=== PATIENT | female | born 1960 | race Caucasian/White ===

== ENCOUNTER 2020-04-22 12:44 | Outpatient (CLI) | payer MEDICARE, MEDICAID, SELFPAY ==
--- NOTE | ~2020-04-22 | CT_ITS ---
EXAMINATION: CT lung screening DATE: 04/22/2020 13:00 INDICATION: Personal history of nicotine dependence, current smoker with 30 pack year history TECHNIQUE: Computed tomography (CT) of the chest was performed without intravenous contrast. The dose -length product (DLP) was 60.54 mGy-cm. Automated exposure control and iterative reconstruction techn ique were employed. COMPARISON: None FINDINGS: There is moderate emphysema. No suspicious pulmonary nodules are identified. The lungs are free of acute opacities. There is no pleural effusion or pneumothorax. No pathologically enlarged tho racic lymph nodes are identified. The heart size is normal. Calcified coronary artery atherosclerosis is noted. IMPRESSION: 1. Lung-RADS category 1: Negative. Continue annual screening with noncontrast low-dose chest CT in 12 months. Reviewed, dictated and finalized at location A. IMPRESSION: 1. Lung-RADS category 1: Negative. Continue annual screening with noncontrast l ow-dose chest CT in 12 months.
== END 2020-04-22 12:45 | disposition home or self-care (01) ==
PROVIDERS: PCP Internal Medicine; Visit Provider Internal Medicine
DX: Z12.2 Encounter for screening for malignant neoplasm of respiratory organs (principal); Z87.891 Personal history of nicotine dependence
CPT/HCPCS: G0297

== ENCOUNTER 2020-05-10 10:34 | Outpatient (CLI) | payer MEDICARE, MEDICAID, SELFPAY ==
--- NOTE | ~2020-05-10 | XR_ITS ---
EXAMINATION: XR ankle RT min 3V INDICATION: Right ankle pain, initial encounter TECHNIQUE: Four views of the right ankle are obtained. COMPARISON: None available FINDINGS: There is an acute avulsion fracture involving the tip of the lateral malleolus. Ankle soft tissue swelling is present. Bone alignment is normal. No additional fracture is identified. IMPRESSION: 1. Small avulsion fracture of the lateral malleolus. Reviewed, dictated and finalized at location A.
--- NOTE | ~2020-05-10 | XR_ITS ---
EXAMINATION: XR foot RT min 3V DATE: 05/10/2020 10:55 INDICATION: Right foot pain, initial encounter TECHNIQUE: Dorsoplantar, lateral, and 2 oblique views of the right foot were obtained. COMPARISON: None. FINDINGS: There is a questionable avulsion injury involving the dorsal aspect of the navicular. The t iny avulsion of the lateral malleolus as described in the ankle radiographs. Bone alignment in the fo ot is normal. The foot soft tissues are unremarkable. IMPRESSION: 1. Possible avulsion injury involving the dorsal aspect of the navicular. Reviewed, dictated and finalized at location A.
== END 2020-05-10 10:35 | disposition home or self-care (01) ==
LOC: CHSIMG 10:36
PROVIDERS: PCP Internal Medicine; Visit Provider Internal Medicine
DX: S99.911A Unspecified injury of right ankle, initial encounter (principal)
CPT/HCPCS: 73610; 73630

== ENCOUNTER 2020-06-07 10:01 | Outpatient (CLI) | payer MEDICARE, MEDICAID, SELFPAY ==
--- NOTE | ~2020-06-07 | XR_ITS ---
XR foot RT min 3V, XR ankle RT min 3V 06/07/2020 10:25 (accession [id number]), 06/07/2020 10:24 (accession [id number]) INDICATION: Follow-up fracture PROCEDURE: 4 views right foot and 4 views right ankle COMPARISON: 05/10/2020 FINDINGS: Fracture, dislocation or subluxation is not identified. Lisfranc joint intact. Mild osteoar thritis first MTP joint. There is a healing fracture fibular tip. Ankle mortise intact. No significan t soft tissue swelling. No acute fracture or traumatic malalignment. No evidence for fracture involvi ng the navicular. The soft tissues appear within normal limits. No foreign bodies are identified. IMPRESSION: 1: Healing fracture right fibular tip. Reviewed, dictated and finalized at location B. IMPRESSION: 1: Healing fracture right fibular tip.
== END 2020-06-07 10:02 | disposition home or self-care (01) ==
LOC: CHSIMG 10:02
PROVIDERS: PCP Internal Medicine; Visit Provider Internal Medicine
DX: S82.891D Other fracture of right lower leg, subsequent encounter for closed fracture with routine healing (principal)
CPT/HCPCS: 73610; 73630

== ENCOUNTER 2020-07-16 12:18 | Outpatient (CLI) | payer MEDICARE, MEDICAID, SELFPAY ==
--- NOTE | ~2020-07-16 | XR_ITS ---
EXAMINATION: XR ankle RT min 3V DATE: 07/16/2020 12:39 INDICATION: Follow-up right fibular fracture TECHNIQUE: Anteroposterior, oblique, mortise, and lateral views of the right ankle were obtained. COMPARISON: 06/07/2020 and 05/10/2020 FINDINGS: Stable appearance of an old healed distal fibular fracture which is in essentially anatomic alignment and which is unchanged since the earliest study at this institution on 05/10/2020. No other fractures identified. The profiled joint spaces are normal. No right ankle joint effusion. Soft tissues are un remarkable. IMPRESSION: 1. Stable appearance since 05/10/2029 of an old healed distal right fibular fracture. Reviewed, dictated and finalized at location A. IMPRESSION: 1. Stable appearance since 05/10/2029 of an old healed distal right fibular frac ture.
== END 2020-07-16 12:19 | disposition home or self-care (01) ==
LOC: CHSIMG 12:21
PROVIDERS: PCP Internal Medicine; Visit Provider Internal Medicine
DX: S82.491D Other fracture of shaft of right fibula, subsequent encounter for closed fracture with routine healing (principal)
CPT/HCPCS: 73610

== ENCOUNTER 2020-08-17 14:47 | Outpatient (CLI) | payer MEDICARE, MEDICAID, SELFPAY ==
--- NOTE | ~2020-08-17 | XR_ITS ---
XR ankle RT min 3V, XR foot RT min 3V 08/17/2020 15:18 Indication: Right foot and ankle pain Procedure: 4 views right ankle and 4 views right foot Comparison: No prior studies for comparison. Findings: There is an oblique distal fibular fracture with subtle lateral displacement. Ankle mortise intact. Talar dome within normal limits. Moderate lateral soft tissue swelling. Lisfranc joint intac t. No other fracture. Impression: 1: Oblique mildly displaced distal fibular fracture. Reviewed, dictated and finalized at location A. Impression: 1: Oblique mildly displaced distal fibular fracture. Impression: 1: Oblique mildly displaced distal fibular fracture.
== END 2020-08-17 14:48 | disposition home or self-care (01) ==
LOC: CHSLAB 14:48
PROVIDERS: PCP Internal Medicine; Visit Provider Internal Medicine
DX: S82.491A Other fracture of shaft of right fibula, initial encounter for closed fracture (principal); S99.911A Unspecified injury of right ankle, initial encounter; M25.571 Pain in right ankle and joints of right foot; M25.471 Effusion, right ankle
CPT/HCPCS: 73610; 73630

== ENCOUNTER 2020-09-29 13:06 | Outpatient (CLI) | payer MEDICARE, MEDICAID, SELFPAY ==
--- NOTE | ~2020-09-29 | XR_ITS ---
EXAMINATION: XR ankle RT min 3V EXAM DATE: 09/29/2020 13:31 INDICATION: right distal fibular fracture follow-up. TECHNIQUE: Right ankle frontal, lateral and oblique projections obtained and reviewed. Comparison is made to prior examination from 08/17/2010. FINDINGS: There is subacute oblique fracture of the right distal fibula into the superolateral aspect of the mortise, with about 4 mm displacement posterolaterally, position unchanged. Compared to prior study, the fracture line is indistinct, evidence of early routine healing, however there is no solid bone bridging mature callus formation identified. Continued follow-up is indicated. The mortise rela tionship does appear intact. IMPRESSION: Oblique distal fibular fracture into mortise, position unchanged. No solid bone bridging . Reviewed, dictated and finalized at location B. K FOODS MIXER OPERATOR IMPRESSION: Oblique distal fibular fracture into mortise, position unchanged. No solid bone bridging.
== END 2020-09-29 13:07 | disposition home or self-care (01) ==
LOC: CHSIMG 13:08
PROVIDERS: PCP Internal Medicine; Visit Provider Internal Medicine
DX: S82.831D Other fracture of upper and lower end of right fibula, subsequent encounter for closed fracture with routine healing (principal)
CPT/HCPCS: 73610

== ENCOUNTER 2020-10-07 11:18 | Outpatient (CLI) | payer MEDICARE, MEDICAID, SELFPAY ==
--- NOTE | ~2020-10-07 | CT_ITS ---
EXAMINATION: CT ankle RT wo con DATE: 10/07/2020 12:03 INDICATION: Right distal fibular fracture TECHNIQUE: High resolution computed tomography (CT) of the right ankle and hindfoot was performed wit hout intravenous contrast. Additional sagittal and coronal reconstructions were performed. Automated exposure control and iterative reconstruction technique were employed. The dose-length product was 32 4.33 mGy-cm. COMPARISON: Radiographs dated 05/10/2020 through 09/29/2020 FINDINGS: No significant interval change in a 3 mm posterolateral displacement of an oblique and mildly comminu fawad fractures of the distal right fibula which is superimposed over an old healed fracture deformity. The fracture plane exists the medial cortex at the level of the tibiotalar joint line. There is a sm aller fragment at the anteromedial margin of the distal fibula likely an avulsion of the footplate of the anterior inferior tibiofibular ligament. There is a small amount of callus formation with very e lester osseous bridging along the posterior margin of the fracture line. The fracture plane as well as the remainder of the cortical margins remain ununited. Tiny minimally displaced flake-like avulsion f racture along the anterior margin of the medial malleolus likely involving the footplate of the super ficial deltoid ligament. There is a second likely healing tiny avulsion fracture fragment along the a nterior talar footplate of the deep deltoid ligament. No other fractures identified. Diffuse osteopen ia. 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 No joint effusions or other abnormal fluid collections. Visualized portions of the flexor and extens or tendons appear normal although assessment is significantly more limited than with MRI. IMPRESSION: 1. Small amount of callus formation with very early bridging along the posterior margin of a minimall y displaced mildly comminuted lateral malleolar fracture which includes a small anteromedial avulsion fracture of the footplate of the anterior inferior tibiofibular ligament. 2. Minimally displaced tiny avulsion fractures at the tibial footplate of the anterior deltoid ligame nt and fibular footplate of the deep deltoid ligament, the latter which appears to be healing. 3. 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 Reviewed, dictated and finalized at location A. T ARM OPERATOR IMPRESSION: 1. Small amount of callus formation with very early bridging along the posterio r margin of a minimally displaced mildly comminuted lateral malleolar fracture which includes a small anteromedial avulsion fracture of the footplate of the a nterior inferior tibiofibular ligament. 2. Minimally displaced tiny avulsion fractures at the tibial footplate of the a nterior deltoid ligament and fibular footplate of the deep deltoid ligament, th e latter which appears to be healing. 3. 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
--- NOTE | 2020-10-07 11:35 | ECG_ITS ---
Measurements Intervals [place] Rate: 65 P: 79 MT: 192 QRS: 71 QRSD: 84 T: 79 QT: 383 QTc: 399 Interpretive Statements SINUS RHYTHM WITH SINUS ARRHYTHMIA NORMAL ECG Electronically Signed On 10-07-2020 15:02:43 CLAMP TRUCK DRIVER by Hank Wang D.O.
== END 2020-10-07 11:19 | disposition home or self-care (01) ==
PROVIDERS: PCP Internal Medicine; Visit Provider Internal Medicine
DX: S82.491D Other fracture of shaft of right fibula, subsequent encounter for closed fracture with routine healing (principal)
CPT/HCPCS: 73700; 93005

== ENCOUNTER 2025-01-28 10:17 | Outpatient (CLI) | payer MEDICARE, MEDICAID, SELFPAY ==
--- NOTE | ~2025-01-28 | US_ITS ---
EXAMINATION: US carotid duplex BI DATE: 01/28/2025 10:58 INDICATION: Dizziness. TECHNIQUE: Grayscale, color Doppler, and pulsed Doppler images of the cervical carotid arteries were obtained. The degree of vessel stenosis is placed in one of the following categories: normal, <50%, 5 0-69%, >=70% but less than near-occlusion, near-occlusion, or total occlusion. Note that percent sten osis relative to normal distal artery lumen diameter is indirectly measured from velocity measurement s as described by Omer, et al. Radiology 2003; 229:340-346. COMPARISON: None. FINDINGS: RIGHT: The right common carotid artery (CCA) peak systolic velocity (PSV) is 116 cm/s. The right internal ca rotid artery (ICA) PSV is 124 cm/s. The right ICA end-diastolic velocity (EDV) is 29 cm/s. The right ICA/CCA PSV ratio is 1.1. Grayscale and color Doppler images yield an estimate of <50% diameter reduc tion from plaque in the ICA. The external carotid artery (ECA) PSV is 76 cm/s. There is antegrade jamari w in the right vertebral artery. LEFT: The left CCA PSV is 113 cm/s. The left ICA PSV is 108 cm/s. The left ICA EDV is 24 cm/s. The left ICA /CCA PSV ratio is 1.0. Grayscale and color Doppler images yield an estimate of <50% diameter reductio n from plaque in the ICA. The ECA PSV is 81 cm/s. There is antegrade flow in the left vertebral arter y. IMPRESSION: 1. <50% stenosis in the right internal carotid artery. 2. <50% stenosis in the left internal carotid artery. Reviewed, dictated and finalized at location B. MOBILE CLERK
--- NOTE | ~2025-01-28 | XR_ITS ---
XR chest 2V Ordering provider: Wesly Gunter MD History: 64 years Female with . DIZZINESS . Comparison: January 07, 2018 FINDINGS: MEDIASTINUM: The cardiac silhouette is not enlarged. LUNGS: No infiltrates, effusions or pneumothorax. Underlying emphysematous changes. OTHER: No free air under the diaphragm. IMPRESSION: No acute cardiopulmonary pathology. Reviewed, dictated and finalized at location A. [place] SALES ASSOCIATE
--- NOTE | 2025-01-28 10:44 | ECG_ITS ---
Test Date: 2025-01-28 11:13:20 Measurements Intervals [place] Rate: 57 P: 82 MN: 188 QRS: 76 QRSD: 85 T: 78 QT: 407 QTc: 397 Interpretive Statements SINUS BRADYCARDIA WITH SINUS ARRHYTHMIA SEPTAL MYOCARDIAL INFARCTION , OF INDETERMINATE AGE [40+ ms Q WAVE IN V1/V2] No previous ECG available for comparison Electronically Signed On 01-28-2025 13:07:48 FACILITY ENVIRONMENTAL TECHNICIAN by Ousmane Mendoza M.D.
[2025-01-28 10:46] LABS: Hematocrit 39.5 % (35.0-42.0); Hemoglobin 12.8 g/dL (11.7-13.8); Mean Corpuscular HGB Conc 32.4 g/dL (32-36); Mean Corpuscular Hemoglobin 29.6 pg (27.0-31.0); Mean Corpuscular Volume 91.4 fL (78.0-102.0); Mean Platelet Volume 9.5 fl (9.2-11.8); Platelet Count Result 325 K/mm3 (150-420); Red Blood Count 4.32 M/mm3 (4.20-5.40); Red Cell Distribution Width 13.3 % (11.6-14.4); White Blood Count 5.5 K/mm3 (4.8-10.8)
[2025-01-28 10:50] LABS: Add Urine Microscopic? NO; Appearance Urine Clear (Clear); Bilirubin Urine Negative (Negative); Blood Urine Negative (Negative); Color Urine Light Yellow (Yellow); Glucose Urine UA Negative (Negative); Ketones Urine Negative (Negative); Leukocyte Esterase Ur Negative (Negative); Nitrate Urine Negative (Negative); Protein Urine Negative (Negative); Urobilinogen Urine 0.2 mg/dL (0.2-1.0)
[2025-01-28 12:07] LABS: Band Neutrophils Percent 0 % (0-6); Lymphocytes Absolute Manual 1.81 K/mm3 (1.1-4.5); Lymphocytes Percent Manual 33 % (18-44); Monocytes Absolute Manual 0.71 K/mm3 (0.1-0.90); Monocytes Percent Manual 13 % (3-9); Neutrophils Absolute Manual 2.97 K/mm3 (1.7-7.2); Neutrophils Percent Manual 54 % (46-73); Total Cells Counted 100
[2025-01-28 12:08] LABS: Platelet Estimate Adequate (Adequate)
[2025-01-28 23:52] LABS: Alanine Aminotransferase 21 U/L (14-59); Albumin Level 4.6 g/dL (3.4-5.0); Alkaline Phosphatase 84 U/L (46-116); Anion Gap 9 mmol/L (4-12); Aspartate Amino Transferase 24 U/L (15-37); Bilirubin,Total 0.4 mg/dL (0.00-1.00); Blood Urea Nitrogen 18 mg/dL (7-18); Calcium 9.9 mg/dL (8.5-10.1); Carbon Dioxide 28 mmol/L (21-32); Chloride 101 mmol/L (98-108); Cholesterol 205 mg/dL (0-200); Estimated Glomerular Filt Rate > 60; Glucose 90 mg/dL (70-99); HDL Direct 78 mg/dL (40-60); LDL Cholesterol Calculated 118 mg/dL (<130); Osmolality Calculated 287 mOsm/kg (285-295); Potassium 4.6 mmol/L (3.5-5.1); Sodium 138 mmol/L (136-145); Thyroid Stimulating Hormone 2.32 uIU/mL (0.36-3.74); Total Protein 7.6 g/dL (6.4-8.2); Triglycerides 47 mg/dL (0-150)
== END 2025-01-28 10:18 | disposition home or self-care (01) ==
PROVIDERS: PCP Internal Medicine; Visit Provider Internal Medicine
DX: R42 Dizziness and giddiness (principal); R00.1 Bradycardia, unspecified; I49.8 Other specified cardiac arrhythmias; I21.9 Acute myocardial infarction, unspecified; I65.23 Occlusion and stenosis of bilateral carotid arteries
CPT/HCPCS: 36415; 71046; 80053; 80061; 81003; 84443; 85025; 93005; 93880

== ENCOUNTER 2025-03-10 10:11 | Outpatient (CLI) | payer MEDICARE, SELFPAY ==
--- NOTE | 2025-03-10 10:20 | ECHO_ITS ---
Patient Info Name: Lilia Kyle Age: 64 years : 1960 Gender: Female Ht: 68 in Wt: 125 lbs BSA: 1.64 m2 HR: 72 bpm BP: 120 / 72 mmHg Heart Rhythm: Sinus Arrhythmia Technical Quality: Fair Exam Date: 03/10/2025 10:31 AM Exam Location: Echo Lab Patient Status: Outpatient Admit Date: 03/10/2025 Staff Ordering Physician: Wesly Gunter MD Craft Demonstrator: Iza Marquez RDCS Attending Provider: Wesly Gunter MD Exam Type: CA echo doppler color flow Study Info Complete two-dimensional, color flow and Doppler transthoracic echocardiogram is performed. Summary 1. Complete two-dimensional, color flow and Doppler transthoracic echocardiogram is performed. 2. Left ventricular chamber dimension is normal. 3. Left ventricular systolic function is normal, estimated at 60-65%. 4. The left ventricular diastolic function is normal. 5. E/e' 9 is minimally elevated. 6. Left atrial chamber dimension is mildly enlarged. 7. Right atrial chamber dimension is mildly enlarged. 8. There is mild tricuspid valve regurgitation. 9. Mild pulmonary hypertension, estimated pulmonary arterial systolic pressure is 40 mmHg. 10. There is mild pulmonic regurgitation. Left Ventricle E/e' 9 is minimally elevated. Left ventricular chamber dimension is normal. Left ventricular systolic function is normal, estimated at 60-65%. The left ventricular diastolic function is normal. Right Ventricle Right ventricular systolic function is normal and with normal TAPSE 2.0 cm. Right ventricular chamber dimension is normal. Left Atria Left atrial chamber dimension is mildly enlarged. Right Atria Right atrial chamber dimension is mildly enlarged. Aortic Valve The aortic valve is trileaflet. There is no aortic valve stenosis. There is no aortic valve regurgitation. Pulmonic Valve There is mild pulmonic regurgitation. Mitral Valve There is no mitral valve stenosis. There is no mitral valve regurgitation. Tricuspid Valve There is mild tricuspid valve regurgitation. Mild pulmonary hypertension, estimated pulmonary arterial systolic pressure is 40 mmHg. Pericardium/Pleural There is no pericardial effusion. Inferior Vena Cava Normal inferior vena cava with >50% collapse upon inspiration consistent with normal right atrial pressure, 5 mmHg. Aorta The aortic root size at the sinus of Valsalva is normal. Left Ventricular Outflow Tract Name Value Normal LVOT 2D LVOT Diameter 2.0 cm LVOT Doppler LVOT Peak Velocity 87 cm/s LVOT Peak Gradient 3 mmHg LVOT Mean Gradient 1 mmHg LVOT VTI 20 cm LVOT VTI/AV VTI Ratio 0.8 LVOT Stroke Volume 61 ml LVOT CO 6.9 l/min LVOT CI 4.2 l/min/m2 Pulmonic Valve Name Value Normal RVOT Doppler RVOT Peak Gradient 2 mmHg PV Doppler PV Peak Velocity 91 cm/s PV Peak Gradient 3 mmHg Mitral Valve Name Value Normal MV Doppler MV Decel [place] 557 cm/s2 MV PHT 47 ms MV Area (PHT) 4.7 cm2 4.0-5.0 MV Diastolic Function MV E Peak Velocity 89 cm/s MV A Peak Velocity 45 cm/s MV E/A 2.0 MV Decel Time 161 ms MV Annular TDI MV Septal e' Velocity 9.3 cm/s >=8.0 MV E/e' (Septal) 9.7 <=8.0 MV Lateral e' Velocity 8.3 cm/s >=10.0 MV E/e' (Lateral) 10.8 <=8.0 MV e' Average 8.78 MV E/e' (Average) 10.2 Tricuspid Valve Name Value Normal TV Regurgitation Doppler TR Peak Velocity 294 cm/s TR Peak Gradient 28 mmHg Estimated PAP/RSVP RA Pressure 5 mmHg <=5 PA Systolic Pressure 40 mmHg <36 RV Systolic Pressure 40 mmHg <36 TV Annular TDI TV Lateral Nubia s' Velocity 14.4 cm/s 9.5-18.7 Aortic Valve Name Value Normal AV Doppler AV Peak Velocity 108 cm/s AV Peak Gradient 5 mmHg AV Mean Gradient 2 mmHg AV VTI 25 cm AV Area (Cont Eq VTI) 2.5 cm2 >=3.0 AV Area (Cont Eq Dk) 2.5 cm2 AV V1/V2 Ratio 0.80 AV Regurgitation 2D LVOT Area 3.1 cm2 Ventricles Name Value Normal LV Dimensions 2D/MM IVS Diastolic Thickness (2D) 0.8 cm 0.6-1.0 LVID Diastole (2D) 4.2 cm 3.8-5.2 LVIW Diastolic Thickness (2D) 0.9 cm 0.6-0.9 LVID Systole (2D) 2.9 cm 2.2-3.5 LVOT Diameter 2.0 cm LV Mass (2D Cubed) 119.91 g 67.00-162.00 LV Mass Index (2D Cubed) 73 g/m2 43-95 Relative Wall Thickness (2D) 0.44 LV Fractional Shortening/Ejection Fraction 2D/MM LV Fractional Shortening (2D) 32 % 27-45 LV EF (2D Teicholz) 61 % 54-74 LV Diastolic Volume (4C MOD) 98 ml LV EF (4C MOD) 67 % LV Diastolic Volume (2C MOD) 106 ml LV EF (2C MOD) 66 % LV Diastolic Volume (BP MOD) 107 ml 46-106 LV Diastolic Volume Index (BP MOD) 65 ml/m2 29-61 LV Systolic Volume (BP MOD) 35 ml 14-42 LV Systolic Volume Index (BP MOD) 21 ml/m2 8-24 LV EF (BP MOD) 67 % 54-74 LV Diastolic Length (4C) 6.8 cm LV Systolic Length (4C) 5.9 cm LV Stroke Volume (4C MOD) 66 ml Atria Name Value Normal LA Dimensions LA Volume (4C A-L) 52 ml LA Volume (BP A-L) 58 ml RA Dimensions RA Area (4C) 21.8 cm2 <=18.0 Report Signatures
--- OUTSIDE RECORDS SUMMARY | 2025-03-10 11:07 | XMS_ITS | Clinical Summary ---
Author Organization [facility] Address [address] [place] [id number] Care Team Providers Care University Counselor Name Role Phone Unavailable Primary Care Provider Unavailabl e Social History Tobacco Use Types Packs/Day Years Used Date Smoking Tobacco: Never Assessed Comments Unknown Sex and Gender Information Value Date Recorded Sex Assigned at Not on file Legal Sex Female 8:19 PM CDT Gender Identity Not on file Sexual Orientation Not on file Plan of Treatment Health Maintenance Due Date Last Done Comments Colorectal Cancer Screening Colonoscopy (10 Years) 1960 Hepatitis C 1977 DTaP, Tdap and Td Vaccines ( 1 - Tdap) 1978 Mammogram Screening 1999 Zoster Vaccines (1 of 2) 2009 COVID-19 Vaccine ( - 2023-2 5 season) 2024 Dexa Scan (General) 2024 Pneumococcal Vaccine: 50+ Ye ars (1 of 1 - PCV) 2024 RSV Immunization or 60+ Years (1 - 1-dose 75+ series) 2034 Meningococcal B Vaccine Aged Out No l onger eligible based on patient's age to complete this topic Meningococcal Vaccine Aged Out No kwabena maria del carmen eligible based on patient's age to complete this topic Pneumococcal Vaccine: Pediat rics (0 to 5 Years) and At-Risk Patients (6 to 49 Years) Aged Out No longer eligible b ased on patient's age to complete this topic RSV Immunizations Under 20 Months Aged Out No longer eligible based on patient's age to complete this topic Advance Directives Documents on File Type Date Recorded 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
== END 2025-03-10 10:12 | disposition home or self-care (01) ==
LOC: CHSIMG 10:13
PROVIDERS: PCP Internal Medicine; Visit Provider Internal Medicine
DX: R94.31 Abnormal electrocardiogram [ECG] [EKG] (principal); I27.20 Pulmonary hypertension, unspecified; I07.1 Rheumatic tricuspid insufficiency
CPT/HCPCS: 93306

== ENCOUNTER 2025-09-25 15:57 | Outpatient (CLI) | payer MEDICARE, SELFPAY ==
[2025-09-25 16:30] LABS: Hematocrit 36.7 % (35.0-42.0); Hemoglobin 12.0 g/dL (11.7-13.8); Mean Corpuscular HGB Conc 32.7 g/dL (32-36); Mean Corpuscular Hemoglobin 29.5 pg (27.0-31.0); Mean Corpuscular Volume 90.2 fL (78.0-102.0); Platelet Count Result 325 K/mm3 (150-420); Red Blood Count 4.07 M/mm3 (4.20-5.40); White Blood Count 8.0 K/mm3 (4.8-10.8)
[2025-09-25 16:47] LABS: Alanine Aminotransferase 14 U/L (6-35); Albumin Level 4.7 g/dL (3.5-5.1); Alkaline Phosphatase 53 U/L (38-126); Anion Gap 6 mmol/L (4-12); Aspartate Amino Transferase 23 U/L (14-36); Bilirubin,Total 0.5 mg/dL (0.2-1.3); Blood Urea Nitrogen 17 mg/dL (7-17); Calcium 9.8 mg/dL (8.4-10.2); Carbon Dioxide 31 mmol/L (22-30); Chloride 100 mmol/L (98-107); Estimated Glomerular Filt Rate 52; Glucose 85 mg/dL (65-110); Osmolality Calculated 284 mOsm/kg (285-295); Potassium 4.6 mmol/L (3.4-5.0); Sodium 137 mmol/L (137-145); Total Protein 7.1 g/dL (6.3-8.2)
== END 2025-09-25 15:58 | disposition home or self-care (01) ==
LOC: CHSLAB 15:58
PROVIDERS: PCP Internal Medicine; Visit Provider Internal Medicine
DX: R42 Dizziness and giddiness (principal); Z11.1 Encounter for screening for respiratory tuberculosis
CPT/HCPCS: 36415; 80053; 85027; 86480